=== PATIENT | female | born 1980 | race Caucasian/White ===

== ENCOUNTER 2021-02-03 07:56 | Day surgery (SDC) | payer BC ==
[~2021-02-03] VITALS: Ht 182.9 cm; Wt 112.9 kg
[2021-02-03] VITALS (10 sets, daily range): BP systolic 105–133; BP diastolic 46–71
[2021-02-03] MEDS ORDERED: diphenhydrAMINE 25mg capsule PO PRN (08:25)
[2021-02-03] MEDS ORDERED: normal saline 1,000 ML IV SCH (08:25)
[2021-02-03] MEDS ORDERED: RIVA20TA PO (08:36)
[2021-02-03] MEDS ORDERED: HYDR12.55 PO (08:36)
[2021-02-03] MEDS ORDERED: LOSA25TA96 PO (08:36)
[2021-02-03] MEDS ORDERED: ATOR40TA PO (08:36)
[2021-02-03 09:13] LABS: BASOPHILS % (AUTO) 0.4 % (0-1); EOSINOPHILS # (AUTO) 0.2 X10'3 (0-0.9); EOSINOPHILS % (AUTO) 1.5 % (0-6); HEMATOCRIT 38.2 % (35.0-45.0); HEMOGLOBIN 12.9 g/dl (12.0-16.0); LYMPHOCYTES # (AUTO) 1.9 X10'3 (1.1-4.8); LYMPHOCYTES % (AUTO) 18.4 % (21-51); MEAN CORPUSCULAR HEMOGLOBIN 28.3 PG (27.0-31.0); MEAN CORPUSCULAR HGB CONC 33.7 g/dL (33.0-36.5); MEAN CORPUSCULAR VOLUME 84.1 FL (78-98); MEAN PLATELET VOLUME 7.3 FL (7.4-10.4); MONOCYTES # (AUTO) 0.6 X10'3 (0-0.9); MONOCYTES % (AUTO) 5.3 % (2-12); NEUTROPHILS # (AUTO) 7.8 X10'3 (1.8-7.7); NEUTROPHILS % (AUTO) 74.4 % (42-75); PLATELET COUNT 296 X10'3 (140-440); RED BLOOD COUNT 4.55 X10'6 (4.20-5.60); RED CELL DISTRIBUTION WIDTH 13.4 % (11.5-14.5); WHITE BLOOD COUNT 10.4 X10'3 (4.5-11.0)
[2021-02-03 09:31] LABS: ALBUMIN 3.4 G/DL (3.4-5.0); ANION GAP 9 (8-16); BLOOD UREA NITROGEN 13 MG/DL (7-18); BUN/CREATININE RATIO 18.1 (6.6-38.0); CALCIUM 8.9 MG/DL (8.5-10.1); CHLORIDE 106 MMOL/L (99-107); CREATININE 0.72 MG/DL (0.40-0.90); GLUCOSE 110 MG/DL (70-104); MAGNESIUM 1.9 MG/DL (1.5-2.4); SODIUM 139 MMOL/L (135-145); TOTAL CARBON DIOXIDE 24.4 MMOL/L (24-32); eGFR 89 ML/MIN
[2021-02-03] MEDS ORDERED: midazolam 1 mg/ML 2ml injection ONE ×2 (11:12→12:04)
[2021-02-03] MEDS ORDERED: fentaNYL/PF 50MCG/1 ML 2ML syringe ONE (11:12)
[2021-02-03] MEDS ORDERED: iohexol 350 MG/ML 50ML vial IV ONE (11:13)
[2021-02-03] MEDS ORDERED: LIDOcaine 1% (10mg/ml)w/preservative injection 20ml MDV ONE (11:13)
[2021-02-03] MEDS ORDERED: iohexol 350MG/ML 100ml bottle IV ONE (11:13)
[2021-02-03] MEDS ORDERED: ondansetron/PF 4mg/2ml inj IV PRN (13:15)
[2021-02-03] MEDS ORDERED: OXAZEpam 15mg capsule PO PRN (13:15)
[2021-02-03] MEDS ORDERED: HYDROcodone/acetaminophen 5mg/325mg tablet PO PRN (13:15)
[2021-02-03] MEDS ORDERED: proCHLORperazine 10 MG/2 ml inj IV PRN (13:15)
[2021-02-03] MEDS ORDERED: HYDROcodone/acetaminophen 10/325mg tab PO PRN (13:15)
[2021-02-03] MEDS ORDERED: acetaminophen 325mg tablet PO PRN (13:50)
== END 2021-02-03 16:05 | disposition home or self-care (01) ==
LOC: SSTAY O 07:56
PROVIDERS: ATTEND Internal Medicine Cardiovascular Disease
DX: R94.39 Abnormal result of other cardiovascular function study (principal); R07.89 Other chest pain; I48.91 Unspecified atrial fibrillation; I10 Essential (primary) hypertension; G47.30 Sleep apnea, unspecified; E78.5 Hyperlipidemia, unspecified; I48.0 Paroxysmal atrial fibrillation; Z86.16 Personal history of COVID-19; Z79.01 Long term (current) use of anticoagulants; Z79.899 Other long term (current) drug therapy; Z98.890 Other specified postprocedural states; Z88.8 Allergy status to other drugs, medicaments and biological substances; Z88.0 Allergy status to penicillin; Z72.89 Other problems related to lifestyle; Z86.73 Personal history of transient ischemic attack (TIA), and cerebral infarction without residual deficits
CPT/HCPCS: 36415; 80048; 83735; 85025; 85610; 93005; 93460; 99152; 99153; C1760; C1769; C1894; J1644; J2001; J2250; J3010; J7030; Q0163; Q9967; A4620; A6258; C1751